=== PATIENT | female | born 1955 | race African-American/Black ===

== ENCOUNTER 2020-03-27 14:44 | Observation (INO) | payer MEDICARE, MEDICAID, OTHER ==
[2020-03-27 17:06] VITALS: BMI 23.6
[2020-03-27] MEDS ORDERED: Acetaminophen 325 MG TAB PO PRN (18:57)
--- NOTE | 2020-03-27 19:26 | PDOC.HHP ---
Hospitalist HPI - History of Present Illness Chest pain History of Present Illness: Ms. Rico is a 64 year-old female with a PMHx of hypothyroidism, HLD, anxiety, and asthma who presented to [facility] for chest pain. Pt reports that she has had right sided chest pain for the past week that is intermittent. Describes pain as "sore", non-radiating. Endorses mild SOB also over the past week. Denies N/V/D. Denies cough, congestion, or upper respiratory symptoms. Denies dizziness/lightheadedness. Reports two family members who live with her both have COVID. I spoke with patient's career representative and sister, Alida who reported that the pt only alerted them to shortness of breath this morning. She confirms that herself and another family member who both live with the pt have COVID and have had mild symptoms. In the ED initial vital signs 164/83, 65, 82, 100% on RA. EKG NSR with non- specific t-wave changes. Initial troponin 0.013. CT chest showed collapse of R middle lobe. No evidence of mass or PE. H/H 12.6/38.6, BUN/Cr 12/ 0.93. Rapid COVID negative. Pt received 325 of ASA. Since radiology report recommended bronchoscopy for further workup-up of the R middle lobe collapse, patient was transferred to [facility]. Hospitalist ROS - Review of Systems Constitutional: denies: fever, chills, sweats, weakness, malaise, other Eyes: denies: pain, vision change, conjunctivae inflammation, eyelid inflammation, redness, other ENT: denies: ear pain, ear discharge, nose pain, nose discharge, nose congestion, mouth pain, mouth swelling, throat pain, throat swelling, other Respiratory: reports: shortness of breath, pleuritic pain. denies: cough, dry, hemoptysis, SOB with excertion, sputum, wheezing, other Cardiovascular: reports: chest pain. denies: palpitations, orthopnea, paroxysmal noc. dyspnea, edema, light headedness, other Gastrointestinal: denies: nausea, vomiting, abdominal pain, diarrhea, constipation, melena, hematochezia, other Genitourinary: denies: dysuria, frequency, incontinence, hematuria, retention, other Musculoskeletal: denies: neck pain, shoulder pain, arm pain, back pain, hand pain, leg pain, foot pain, other Skin: denies: rash, lesions, elizabeth, bruising, other Neurological: denies: weakness, numbness, incoordination, change in speech, confusion, seizures, other - Medication Medications: Home medications include: Atorvastatin 10 mg Diazepam 5 mg Levothyroxine 88 mcg Symbicort Kiah GARCIA Hospitalist History - Past Medical History Other Medical History: Medical History of: Developmental Delay Hypothyroidism Hyperlipidemia Anxiety - Past Surgical History Other Surgical History: Surgical history includes hysterectomy - Family History Other Family History: No pertinent family history - Social History Smoking Status: Never smoker Alcohol: reports: None Drugs: reports: none Living Situation: With Family Activity level: independent ambulation Other Social History: Patient's sister, Alida is her editor magazine. - Exam General Appearance: NAD, awake alert General - other findings: Cachectic Eye: PERRL, anicteric sclera ENT: normocephalic atraumatic, no oropharyngeal lesions, moist mucosa Neck: supple, symmetric, no JVD, no thyromegaly, no lymphadenopathy, no carotid bruit Heart: RRR, no murmur, no gallops, no rubs, normal peripheral pulses Respiratory: CTAB, no wheezes, no rales, no ronchi, normal chest expansion, no tachypnea, normal percussion Gastrointestinal: soft, non-tender, non-distended, normal bowel sounds, no palpable masses, no hepatomegaly, no splenomegaly, no bruit Extremities: no cyanosis, no clubbing, no edema Skin: normal turgor, no lesions, no rashes Neurological: cranial nerve grossly intact, normal sensation to touch, no weakness, no focal deficits, no new deficit Musculoskeletal: normal tone, normal strength, diffuse muscle atrophy Psychiatric: normal affect, normal behavior, A&O x 3 Hospitalist H&P A/P - Problem (1) Chest pain Code(s): R07.9 - CHEST PAIN, UNSPECIFIED Status: Acute (2) Lung collapse Code(s): J98.19 - OTHER PULMONARY COLLAPSE Status: Acute (3) Hyperlipidemia Code(s): E78.5 - HYPERLIPIDEMIA, UNSPECIFIED Status: Acute (4) Asthma Code(s): J45.909 - UNSPECIFIED ASTHMA, UNCOMPLICATED Status: Acute (5) Hypothyroidism Code(s): E03.9 - HYPOTHYROIDISM, UNSPECIFIED Status: Acute (6) Anxiety Code(s): F41.9 - ANXIETY DISORDER, UNSPECIFIED Status: Acute (7) Cognitive developmental delay Code(s): F81.9 - DEVELOPMENTAL DISORDER OF SCHOLASTIC SKILLS, UNSPECIFIED Status: Acute - Plan Plan: Chest pain: P/w 1 week of right chest/shoulder pain. EKG showed NSR with non-specific t-wave changes. Initial troponin 0.013. No history of cardiac disease. Pt received 325 of ASA in ED. CHest pain associated with SOB. CTA chest showed no evidence of PE, but did show middle lobe collapse. Pt with multiple household members with COVID. Rapid COVID negative, but will repeat PCR. PLAN: -Telemetry -Trend troponins -Continue ASA, statin -Repeat COVID -Mg, Ca, TSH, LFTs R middle lobe lung collapse: CTA chest showed complete collapse of the R middle lobe. No evidence of mass or filling defect. Radiologist recommended further work-up of collapse with bronchoscopy. Pt currently saturating at 100% SpO2 on RA. Breathing comfortably in no distress. CXR with no acute findings. WBC shows leukopenia to 3.3. Afebrile. Will test for TB/MAC since those can be associated with middle lobe collapse. Pt has history of asthma, although family denies any history of hospitalizations or intubations for asthma exacerbations. Dr. Urena of pulmonology consulted. PLAN: -Pulmonology consult -PRN supplemental oxygen -TB Quantiferon, Sputum culture -Continue to monitor respiratory status closely Asthma: Hx of Asthma. On home Breo Elippta and Symbicort inhalers. Will continue while admitted. Hyperlipidemia: Will continue home atorvastatin daily. Repeat lipid profile. Hypothyroidism: Continue home levothyroxine daily. Anxiety: Hx of anxiety on home diazepam 5 mg PRN. Will continue. DVT Prophylaxis: Lovenox FULL CODE Case discussed with attending physician Dr. Hills.
[2020-03-27 21:18] LABS: Bacteria/HPF None Seen HPF (None Seen); Bilirubin Negative (Negative); Blood, Urine Negative (Negative); Clarity Clear (Clear); Glucose, Urine (Dipstick) Normal (Negative); Ketone, Urine 20 mg/dL (Negative); Leukocyte Negative Leu/uL (Negative); Nitrite Negative (Negative); Protein, Urine (Dipstick) Negative (Neg-Trace); RBC/HPF 0-3 HPF (0-3); Specific Gravity, Urine 1.041 (1.002-1.036); Squamous Epithelial 0-3 HPF (0-3); Urobilinogen Normal mg/dL (Less than 2); WBC/HPF 0-3 HPF (0-3)
[2020-03-27] MEDS ORDERED: Aspirin 325 MG TAB PO SCH (22:15)
[2020-03-28 05:18] LABS: #Basophils 0.1 thou/uL (0.0-0.2); #Eosinphils 0.3 thou/uL (0.0-0.7); #Lymphocytes 1.3 thou/uL (1.20-3.40); #Monocytes 0.3 thou/uL (0.11-0.59); #Neutrophils 1.4 thou/uL (1.40-6.50); %Basophils 1.6 % (0.0-1.0); %Eosinophils 8.4 % (0.0-10.0); %Lymphocytes 38.2 % (21.0-51.0); %Monocytes 10.3 % (0.0-10.0); %Neutrophils 41.5 % (42.0-75.0); Mean Corpuscular HGB CONC 32.3 g/dL (32.0-36.0); Mean Corpuscular Volume 93.1 fL (78.0-98.0); Mean Platelet Volume 7.6 fL (7.4-10.4); Platelet Count 254 thou/uL (130-400); RBC Distribution Width 12.8 % (11.5-14.5); Red Blood Cell (RBC) Count 4.01 mill/uL (4.20-5.40); White Blood Cell (WBC) Count 3.3 thou/uL (4.8-10.8)
[2020-03-28 05:44] LABS: Anion Gap 12 mmol/L (10-20); BUN (Urea Nitrogen) 15 mg/dL (9.8-20.1); Calc. Creatinine Clearance 61 mL/min (70-130); Carbon Dioxide 24 mmol/L (23-31); Cardiac Risk 2.3 (Less than 4.5); Chloride 107 mmol/L (98-107); Cholesterol 171 mg/dl (< 200 Desired); Estimated GFR-MDRD 76; Glucose 77 mg/dL (80-115); HDL Cholesterol 76 mg/dL (>60 Neg Risk); LDL Cholesterol, Calculated 87 mg/dL; Sodium 139 mmol/L (136-145); Triglycerides 40 mg/dL (Less than 150)
[2020-03-28] MEDS ORDERED: Levothyroxine Sodium 50 MCG TAB PO SCH (06:00)
[2020-03-28] MEDS ORDERED: Mometasone 200 MCG/Formoterol 5 MCG 120 PUFF INHALER INH SCH (07:00)
[2020-03-28] MEDS ORDERED: Enoxaparin Sodium 40 MG/0.4 ML SYRINGE SC SCH (09:00)
[2020-03-28] MEDS ORDERED: Aspirin 325 mg Enteric Coated Tablet PO SCH (09:00)
[2020-03-28] MEDS ORDERED: Non-Formulary Item 1 EACH (Fluticasone/Vilanterol [Breo Ellipta] 100 MCG/25 MCG Blst.W.De INH SCH (09:00)
[2020-03-28 16:37] VITALS: BP 139/75; TEMP 97.4
--- NOTE | 2020-03-28 19:28 | CON ---
DATE OF CONSULTATION: 03/28/2020 HISTORY OF PRESENT ILLNESS: Ms. Rico is a 64-year-old female, who was transferred here from [facility] for reported abnormal CT. I reviewed the CT. I have had one of my associates review it and also had a cardiothoracic surgeon review it. She presented with some chest discomfort on the right, it is coming and going. She describes it more as a soreness. She says she is feeling better today. She tells me she is not short of breath. She looks completely comfortable. PAST MEDICAL HISTORY: Remarkable for; 1. Lipid disorder. 2. History of hypothyroidism. 3. History of some sort of learning disability. 4. History of hysterectomy. SOCIAL HISTORY: She is a nonsmoker, nondrinker, and nondrug user. ALLERGIES: SHE HAS NO REPORTED DRUG ALLERGIES. MEDICATIONS: Prior to admission, she is on; 1. Atorvastatin. 2. Valium. 3. Synthroid. 4. Symbicort. 5. Breo. It is unclear why she is on Symbicort and Breo. REVIEW OF SYSTEMS: Otherwise negative. She does have multiple family members she says who have been COVID positive. PHYSICAL EXAMINATION: VITAL SIGNS: She is afebrile. Heart rates in the 50s, respiratory rates in the teens, oximetry is 100% on room air, blood pressure 136/61. HEENT: She has slightly dysconjugate gaze. Sclerae are anicteric. NECK: Supple. LUNGS: Clear. HEART: Regular rhythm. ABDOMEN: Soft. EXTREMITIES: Without edema. LABORATORY DATA: White count 3.3, hemoglobin 12.0, and platelets 254. Electrolytes are normal. Creatinine is normal. TSH is 1.2. Urinalysis unremarkable. CT was reviewed by me. I do not see any evidence of right middle lobe collapse. I see what maybe an epicardial fat pad or a congenital abnormality sequestration, but that is very debatable whether that is what is going on there. At the most, I think she needs another CT scan without contrast in 4 months. I will be happy to facilitate setting this up, she contacts my office after she is discharged. I see no indication for bronchoscopy at this time. This is a 50 min visit with greater than 50% of the time spent on the unit with coordination of care. Job ID: [id number] [facility]
[2020-03-28] MEDS ORDERED: Atorvastatin Calcium 20 MG TAB PO SCH (21:00)
[2020-03-29] MEDS ORDERED: PROVENTIL INHALER 6.7 G (200 INHALATIONS) INH SCH (09:00)
[2020-03-29 11:55] LABS: SARS-CoV-2 MS2 Positive; SARS-CoV-2 N Gene Negative; SARS-CoV-2 S Gene Negative; SARS-CoV-2 by NAA Not Detected (NotDetected); SARS-CoV-2 orf1ab Negative
--- NOTE | 2020-03-29 11:58 | DIS ---
DATE OF ADMISSION: 03/27/2020 DATE OF DISCHARGE: 03/28/2020 DISCHARGE DIAGNOSES: 1. Right middle lobe collapse. 2. Leukopenia. CONSULTATIONS: Dr. Jai Urena with Pulmonary. PROCEDURES: None. BRIEF HISTORY OF PRESENT ILLNESS: This is a 64-year-old female with a past medical history of hypothyroidism, who presented to the emergency room with chest pain and shortness of breath. The patient reportedly had COVID exposure to family members. She describes her pain as sore and nonradiating. The patient had normal vitals upon presentation to the ER. CT scan of her chest showed collapse of the right middle lobe. There was a recommendation for urgent bronchoscopy; therefore, the patient was transferred to [facility] for Pulmonary consult. HOSPITAL COURSE: Chest pain/right middle lobe lung collapse: The patient had serial troponins, which were negative. The patient remained very comfortable and stable on room air. Dr. Urena saw the patient and felt that she is stable for discharge. He recommended another CAT scan without contrast in four months. There is a possibility that this may just be an epicardial fat pad or congenital abnormality. The patient's rapid COVID test was negative. She will be discharged and advised to follow up with her PCP in a week. DISCHARGE PHYSICAL EXAMINATION: VITAL SIGNS: Temperature 97.4, heart rate 74, respiratory rate 18, O2 saturation 99% on room air, and blood pressure 139/75. GENERAL: The patient is alert, awake, and oriented x3. CVS: Regular rate and rhythm with no murmurs, rubs, or gallops. LUNGS: Clear to auscultation bilaterally. ABDOMEN: Positive bowel sounds, soft, nontender, nondistended. EXTREMITIES: No edema. PERTINENT LABORATORY DATA: CBC, 03/28: White count 3.3, hemoglobin 12.0, hematocrit 37.3, and platelet count 254. BMP, 03/28: Normal. Lipid panel, 03/28: Normal. TSH, 03/28: 1.2. UA, 03/27: Shows 20 ketones. Otherwise, unremarkable. COVID PCR, 03/28: Negative. IMAGING DATA: Chest x-ray, 03/27: No active intrathoracic disease. CTA chest, 03/27: Complete collapse of the middle lobe. Expansion of the central spinal canal. Nonemergent thoracic and lumbar MRI spine can be performed. DISCHARGE CONDITION: Stable. DISCHARGE MEDICATIONS: All home medications were resumed. DISCHARGE INSTRUCTIONS: The patient should follow up with her PCP in a week. Consider repeat CT chest as an outpatient in four months and follow up with Dr. Jai Urena. Given enlarged spinal canal, please consider thoracic and lumbar MRI as an outpatient. Job ID: [id number] [facility]
[2020-03-31 20:37] LABS: QuantiFERON-TB Gold Plus Negative (Negative)
== END 2020-03-28 18:02 | disposition home or self-care (01) ==
LOC: 2SW 15:46 → INTOOBSV 18:57 → OBSVTOIN 18:57
PROVIDERS: ADMIT Internal Medicine; ATTEND Internal Medicine
DX: J98.19 Other pulmonary collapse (principal); D72.819 Decreased white blood cell count, unspecified; E03.9 Hypothyroidism, unspecified; E78.5 Hyperlipidemia, unspecified; F41.9 Anxiety disorder, unspecified; J45.909 Unspecified asthma, uncomplicated; F81.9 Developmental disorder of scholastic skills, unspecified; Z79.899 Other long term (current) drug therapy; Z20.828 Contact with and (suspected) exposure to other viral communicable diseases
CPT/HCPCS: 80048; 80061; 81001; 84443; 84484; 85025; 86480; U0003; 36415; 87635; J1650

== ENCOUNTER 2020-07-27 10:25 | Outpatient (CLI) | payer MEDICARE, MEDICAID | END 2020-07-27 10:26 | disposition home or self-care (01) | LOC: BICMAMMO 10:25 | PROVIDERS: ATTEND Family Medicine | DX: Z12.31 Encounter for screening mammogram for malignant neoplasm of breast (principal); Z13.820 Encounter for screening for osteoporosis; N95.9 Unspecified menopausal and perimenopausal disorder | CPT/HCPCS: 77063; 77067; 77080 ==

== ENCOUNTER 2020-07-31 09:08 | Outpatient (CLI) | payer MEDICARE, MEDICAID ==
--- NOTE | 2020-07-31 10:26 | CT ---
CT CHEST PERFORMED WITHOUT CONTRAST ENHANCEMENT: Date: 07/31/2020 HISTORY: Follow-up of right middle lobe collapse. COMPARISON: 03/27/2020 exam. FINDINGS: The volume loss changes related to the right middle lobe are again noted and are stable. Underlying e tiology of this is unclear. The lungs are otherwise clear of any infiltrative process. There are no p ulmonary nodules. I do not appreciate any significant mediastinal or hilar adenopathy on this noncontrast study. Pulmon fabrizio arteries are prominent. The main pulmonary artery is 3.1 cm, similar in dimension to the adjacent thoracic aorta. Visualized liver parenchyma shows no focal findings. IMPRESSION: Stable volume loss changes in the right middle lobe. No new process identified. POS: MEI
== END 2020-07-31 09:09 | disposition home or self-care (01) ==
LOC: BICCT 09:08
PROVIDERS: ATTEND Internal Medicine Critical Care Medicine
DX: I51.5 Myocardial degeneration (principal)
CPT/HCPCS: 71250

== ENCOUNTER 2021-08-09 10:02 | Outpatient (CLI) | payer MEDICARE, MEDICAID | END 2021-08-09 10:03 | disposition home or self-care (01) | LOC: BICCT 10:02 | PROVIDERS: ATTEND Internal Medicine Critical Care Medicine | DX: J98.11 Atelectasis (principal) | CPT/HCPCS: 71250 ==

== ENCOUNTER 2021-12-15 17:55 | Observation (INO) | payer MEDICARE, MEDICAID ==
[2021-12-15 18:43] VITALS: BMI 22.3
[2021-12-15] MEDS ORDERED: Acetaminophen 325 MG TAB PO PRN (20:19)
[2021-12-15] MEDS ORDERED: Acetaminophen 650 MG Suppository PR PRN (20:19)
[2021-12-15] MEDS ORDERED: Ondansetron ODT 4 MG TAB PO PRN (20:19)
[2021-12-15] MEDS ORDERED: Ondansetron PF 4 MG/2 ML Vial IVP PRN (20:19)
[2021-12-16] MEDS ORDERED: hydrALAZINE 20 MG/ML VIAL SLOW IVP PRN (00:55)
[2021-12-16] MEDS ORDERED: Aspirin Chewable 81 MG TAB PO SCH (01:00)
[2021-12-16] MEDS: Sodium Chloride 0.9% 1,000 ML IV SCH ×2 (01:49→18:12)
[2021-12-16 05:20] LABS: #Basophils 0.1 thou/uL (0.0-0.2); #Eosinphils 0.2 thou/uL (0.0-0.7); #Lymphocytes 1.6 thou/uL (1.20-3.40); #Monocytes 0.5 thou/uL (0.11-0.59); #Neutrophils 1.7 thou/uL (1.40-6.50); %Basophils 1.4 % (0.0-1.0); %Eosinophils 6.1 % (0.0-10.0); %Lymphocytes 38.9 % (21.0-51.0); %Monocytes 11.6 % (0.0-10.0); %Neutrophils 42.1 % (42.0-75.0); Hemoglobin 12.1 g/dL (12.0-16.0); Mean Corpuscular HGB CONC 32.2 g/dL (32.0-36.0); Mean Corpuscular Hemoglobin 30.8 pg (27.0-31.0); Mean Corpuscular Volume 95.6 fL (78.0-98.0); Mean Platelet Volume 6.7 fL (7.4-10.4); Platelet Count 254 thou/uL (130-400); RBC Distribution Width 12.6 % (11.5-14.5); Red Blood Cell (RBC) Count 3.92 mill/uL (4.20-5.40); White Blood Cell (WBC) Count 4.1 thou/uL (4.8-10.8)
[2021-12-16 05:43] LABS: Anion Gap 12 mmol/L (10-20); BUN (Urea Nitrogen) 13 mg/dL (9.8-20.1); Calc. Creatinine Clearance 55 mL/min (70-130); Calcium 10.3 mg/dL (7.8-10.44); Carbon Dioxide 25 mmol/L (23-31); Cardiac Risk 2.3 (Less than 4.5); Chloride 107 mmol/L (98-107); Cholesterol 180 mg/dl (< 200 Desired); Glucose 82 mg/dL (80-115); HDL Cholesterol 79 mg/dL (>60 Neg Risk); LDL Cholesterol, Calculated 93 mg/dL; Potassium 4.2 mmol/L (3.5-5.1); Sodium 140 mmol/L (136-145); Triglycerides 40 mg/dL (Less than 150)
[2021-12-16] MEDS ORDERED: Levothyroxine Sodium 50 MCG TAB PO SCH (06:00)
[2021-12-16] MEDS ORDERED: Diazepam 5 MG TAB PO PRN (06:12)
[2021-12-16] MEDS ORDERED: Mometasone 100 MCG/Formoterol 5 MCG 120 PUFF INHALER INH SCH (06:30)
[2021-12-16] MEDS ORDERED: Albuterol 200 PUFF (6.7GM INHALER) INH SCH (07:00)
[2021-12-16] MEDS ORDERED: Aspirin 81 mg Enteric Coated Tablet PO SCH (09:00)
[2021-12-16] MEDS ORDERED: Enoxaparin Sodium 40 MG/0.4 ML SYRINGE SC SCH (09:00)
[2021-12-16 16:12] VITALS: BP 113/62; TEMP 97.4
[2021-12-16] MEDS ORDERED: Atorvastatin Calcium 20 MG TAB PO SCH (21:00)
== END 2021-12-16 19:25 | disposition home or self-care (01) ==
LOC: NEURO 18:31
PROVIDERS: ADMIT Internal Medicine; ATTEND Internal Medicine
DX: E86.0 Dehydration (principal); F81.9 Developmental disorder of scholastic skills, unspecified; E78.5 Hyperlipidemia, unspecified; E03.9 Hypothyroidism, unspecified; F79 Unspecified intellectual disabilities; I51.7 Cardiomegaly; I44.0 Atrioventricular block, first degree; Z79.82 Long term (current) use of aspirin; Z79.890 Hormone replacement therapy; Z79.899 Other long term (current) drug therapy; Z20.822 Contact with and (suspected) exposure to COVID-19; R42 Dizziness and giddiness; R29.705 NIHSS score 5
CPT/HCPCS: 70450; 70551; 71045; 80048; 80053; 80061; 81003; 84484; 85025 ×2; 93005; 93880; 94640; 96372; 97139; 99285; G0378 ×2; U0002; 36415; J1650; J7050

== ENCOUNTER 2022-03-11 11:09 | Outpatient (CLI) | payer OTHER, MEDICAID | END 2022-03-11 11:10 | disposition home or self-care (01) | LOC: BICRAD 11:09 | PROVIDERS: ATTEND Family Medicine | DX: M25.552 Pain in left hip (principal) ==

== ENCOUNTER 2022-08-28 11:50 | Emergency (ER) | payer OTHER, MEDICAID ==
[2022-08-28 12:37] LABS: #Basophils 0.1 thou/uL (0.0-0.2); #Eosinphils 0.2 thou/uL (0.0-0.7); #Lymphocytes 1.5 thou/uL (1.20-3.40); #Monocytes 0.3 thou/uL (0.11-0.59); #Neutrophils 1.2 thou/uL (1.40-6.50); %Monocytes 10.4 % (0.0-10.0); %Neutrophils 36.6 % (42.0-75.0); Hemoglobin 12.8 g/dL (12.0-16.0); Mean Corpuscular HGB CONC 32.8 g/dL (32.0-36.0); Mean Corpuscular Hemoglobin 30.8 pg (27.0-31.0); Mean Corpuscular Volume 93.9 fl (78.0-98.0); Mean Platelet Volume 7.4 fL (7.4-10.4); Platelet Count 287 10x3/uL (130-400); RBC Distribution Width 12.8 % (11.5-14.5); Red Blood Cell (RBC) Count 4.14 mill/uL (4.20-5.40); White Blood Cell (WBC) Count 3.3 10x3/uL (4.8-10.8)
[2022-08-28 12:58] LABS: ALT (SGPT) 19 U/L (8-55); AST (SGOT) 22 U/L (5-34); Albumin 4.4 g/dL (3.4-4.8); Alkaline Phosphatase 71 U/L (40-110); Anion Gap 14 mmol/L (10-20); BUN (Urea Nitrogen) 11 mg/dL (9.8-20.1); Bilirubin, Total 1.3 mg/dL (0.2-1.2); Calc. Creatinine Clearance 0 mL/min (70-130); Calcium 10.7 mg/dL (7.8-10.44); Carbon Dioxide 24 mmol/L (23-31); Chloride 107 mmol/L (98-107); Estimated GFR 70; Globulin 3.3 g/dL (2.4-3.5); Glucose 81 mg/dL (80-115); Potassium 4.3 mmol/L (3.5-5.1); Protein, Total 7.7 g/dL (5.8-8.1); Sodium 141 mmol/L (136-145)
[2022-08-28] MEDS ORDERED: Albuterol 2.5 MG/0.5 ML NEB ONE (13:29)
== END 2022-08-28 13:55 | disposition home or self-care (01) ==
LOC: ERS 11:50
DX: J45.901 Unspecified asthma with (acute) exacerbation (principal); D72.829 Elevated white blood cell count, unspecified; E03.9 Hypothyroidism, unspecified; E78.5 Hyperlipidemia, unspecified; I10 Essential (primary) hypertension; Z79.899 Other long term (current) drug therapy; Z79.82 Long term (current) use of aspirin
CPT/HCPCS: 36415; 71046; 80053; 84484; 85025; 93005; J7611

== ENCOUNTER 2023-03-06 10:48 | Outpatient (CLI) | payer OTHER, MEDICAID ==
[2023-03-06] MEDS ORDERED: Iopamidol-370 76% 500 ML MDV (1 ML CHARGE) ONE (12:45)
== END 2023-03-06 10:49 | disposition home or self-care (01) ==
LOC: BICCT 10:48
PROVIDERS: ATTEND Family Medicine
DX: R10.32 Left lower quadrant pain (principal)
CPT/HCPCS: 74177; 82565; Q9967

== ENCOUNTER 2024-01-05 09:39 | Outpatient (CLI) | payer OTHER, MEDICAID | END 2024-01-05 09:40 | disposition home or self-care (01) | LOC: BICMAMMO 09:39 | PROVIDERS: ATTEND Family Medicine | DX: Z12.31 Encounter for screening mammogram for malignant neoplasm of breast (principal); N64.89 Other specified disorders of breast | CPT/HCPCS: 77063; 77067 ==

== ENCOUNTER 2024-01-12 09:18 | Outpatient (CLI) | payer OTHER, MEDICAID | END 2024-01-12 09:19 | disposition home or self-care (01) | LOC: BICMAMMO 09:18 | PROVIDERS: ATTEND Family Medicine | DX: N64.89 Other specified disorders of breast (principal) | CPT/HCPCS: 76642; 77065; G0279 ==

== ENCOUNTER 2024-02-26 11:20 | Outpatient (CLI) | payer OTHER, MEDICAID | END 2024-02-26 11:21 | disposition home or self-care (01) | LOC: RAD 11:20 | PROVIDERS: ATTEND Internal Medicine Critical Care Medicine | DX: R06.00 Dyspnea, unspecified (principal) | CPT/HCPCS: 71046 ==